=== PATIENT | male | born 1995 | race African-American/Black ===

== ENCOUNTER 2023-03-13 03:36 | Inpatient (IN) | payer SELFPAY ==
[2023-03-13] MEDS ORDERED: Fentanyl CADD 100 ML IV SCH ×2 (04:00→06:15)
[2023-03-13 04:01] LABS: #Eosinphils 0.1 thou/uL (0.0-0.7); #Monocytes 0.4 thou/uL (0.11-0.59); #Neutrophils 4.7 thou/uL (1.40-6.50); %Basophils 0.5 % (0.0-1.0); %Eosinophils 0.8 % (0.0-10.0); %Lymphocytes 34.5 % (21.0-51.0); %Monocytes 4.6 % (0.0-10.0); %Neutrophils 58.8 % (42.0-75.0); Actual Bicarbonate (HCO3a) 21.2 mEq/L (22-28); Analyzer IN Cardio ER; Base Excess (BEa) -2.1 mEq/L (-2.0 to +3.0); CO2 Tension 32.1 mmHg (35.0-45.0); Calcium, Ionized (arterial) 1.13 mmol/L (1.12-1.30); Carboxyhemoglobin (COHb) 3.3 gm% (0.0-3.0); Hematocrit 41.3 % (42.0-52.0); Hematocrit-ABG 40 % (42.0-52.0); Hemoglobin 13.5 g/dL (14.0-18.0); Hemoglobin (Hb) 13.7 g/dL (14.0-18.0); Mean Corpuscular HGB CONC 32.7 g/dL (32.0-36.0); Mean Corpuscular Hemoglobin 27.7 pg (27.0-31.0); Mean Corpuscular Volume 84.8 fl (78.0-98.0); Mean Platelet Volume 9.5 fL (7.4-10.4); O2 Tension (PaO2), arterial 437.2 mmHg (80.0-100.0); Platelet Count 280 10x3/uL (130-400); Potassium - ABG Lab 3.32 mmol/L (3.70-5.30); RBC Distribution Width 13.7 % (11.5-14.5); Red Blood Cell (RBC) Count 4.87 mill/uL (4.70-6.10); pH, Arterial 7.438 (7.35-7.45)
[2023-03-13 04:08] LABS: ALV-art Gradient -120.825 mmHg (0-20); Puncture Site LRA
[2023-03-13 04:27] LABS: Acetaminophen Less than 10 mcg/mL (10.0-30.0); Alcohol 179.2 mg/dL (Less than 10); Lipase 26 U/L (8-78); Salicylate Less than 8.0 mg/dL (15.0-30.0)
[2023-03-13 04:28] LABS: ALT (SGPT) 38 U/L (8-55); AST (SGOT) 31 U/L (5-34); Albumin 5.1 g/dL (3.5-5.0); Alkaline Phosphatase 86 U/L (40-110); Anion Gap 18 mmol/L (10-20); BUN (Urea Nitrogen) 16 mg/dL (8.9-20.6); Bilirubin, Total 0.2 mg/dL (0.2-1.2); CK (CPK) 351 U/L (30-200); Calc. Creatinine Clearance 0 mL/min (70-130); Calcium 9.6 mg/dL (7.8-10.44); Carbon Dioxide 24 mmol/L (22-29); Chloride 105 mmol/L (98-107); Estimated GFR 77; Globulin 2.6 g/dL (2.4-3.5); Glucose 98 mg/dL (70-105); Potassium 3.6 mmol/L (3.5-5.1); Protein, Total 7.7 g/dL (6.0-8.3); Sodium 143 mmol/L (136-145)
[2023-03-13 04:32] LABS: Troponin I Less than 0.010 ng/mL (< 0.028)
[2023-03-13] MEDS ORDERED: Ondansetron PF 4 MG/2 ML Vial ONE ×2 (05:04→05:11)
[2023-03-13] MEDS ORDERED: Propofol 1,000 MG/100 ML VIAL IV ONE (05:05)
[2023-03-13] MEDS ORDERED: Thiamine HCl 200 MG/2 ML VIAL ONE (05:05)
[2023-03-13 05:24] LABS: Bacteria/HPF None Seen HPF (None Seen); Bilirubin Negative (Negative); Blood, Urine Negative (Negative); CAUTI Indications for Culture Urological Procedure; Clarity Clear (Clear); Glucose, Urine (Dipstick) Normal (Negative); Ketone, Urine Negative (Negative); Leukocyte Negative Leu/uL (Negative); Nitrite Negative (Negative); Protein, Urine (Dipstick) Negative (Neg-Trace); RBC/HPF 0-3 HPF (0-3); Specific Gravity, Urine 1.016 (1.002-1.036); Squamous Epithelial None Seen HPF (0-3); Urobilinogen Normal mg/dL (Less than 2); WBC/HPF 0-3 HPF (0-3)
[2023-03-13 05:26] LABS: Amphetamine Not Detected (NotDetected); Barbiturates Screen Not Detected (NotDetected); Benzodiazepine Screen Detected (NotDetected); Cocaine Metabolite Screen Not Detected (NotDetected); Methadone Not Detected (NotDetected); Methamphetamine Not Detected (NotDetected); Opiate Screen Not Detected (NotDetected); Oxycodone Screen Not Detected (NotDetected); Phencyclidine (PCP) Not Detected (NotDetected); THC/Cannabinoid Screen Detected (NotDetected); Tricyclic Screen Not Detected (NotDetected)
[2023-03-13 05:29] LABS: Urine Culture Reflex Yes Yes
[2023-03-13] MEDS ORDERED: Electrolyte Replacement Protocol 1 EACH IVPB SCH (05:56)
[2023-03-13] MEDS ORDERED: Ipratropium/Albuterol 3 ML NEB NEB PRN (05:56)
[2023-03-13] MEDS ORDERED: Acetaminophen 650 MG Suppository PR PRN (05:56)
[2023-03-13] MEDS ORDERED: Ventilator Sedation Protocol 1 EACH FS SCH (06:00)
[2023-03-13] MEDS ORDERED: Fentanyl BOLUS 250 ML IVPB PRN (06:15)
[2023-03-13] MEDS ORDERED: Propofol BOLUS 1,000 MG/100 ML VIAL IV PRN (06:15)
[2023-03-13] MEDS ORDERED: Morphine 2 MG/ML VIAL SLOW IVP PRN (06:15)
[2023-03-13] MEDS ORDERED: DISCONTINUE PREVIOUS NARCOTIC PAIN MEDICATIONS AND BENZODIAZEPINES FS SCH (06:15)
[2023-03-13] MEDS ORDERED: Lorazepam 2 MG/ML VIAL SLOW IVP PRN (06:15)
[2023-03-13] MEDS ORDERED: Propofol 1,000 MG/100 ML VIAL IV PRN (06:15)
[2023-03-13] MEDS: Dextrose 5%-Lactated Ringers 1,000 ML IV SCH ×2 (08:54→17:13)
[2023-03-13] MEDS: Famotidine/PF 20 mg/2ml Vial SLOW IVP SCH ×2 (10:09→20:32)
[2023-03-13 11:52] VITALS: BMI 21.4
[2023-03-13] MEDS ORDERED: FLU VACC QS2023-24(6MOS UP)/PF 60 MCG/0.5 ML SYRINGE IM ONE (12:00)
[2023-03-13] MEDS ORDERED: Iopamidol-370 76% 500 ML MDV (1 ML CHARGE) ONE (14:39)
[2023-03-13 21:05] LABS: Troponin I 0.012 ng/mL (< 0.028)
[2023-03-14 05:45] LABS: #Eosinphils 0.1 thou/uL (0.0-0.7); #Monocytes 0.7 thou/uL (0.11-0.59); #Neutrophils 5.2 thou/uL (1.40-6.50); %Basophils 0.3 % (0.0-1.0); %Eosinophils 1.3 % (0.0-10.0); %Lymphocytes 31.5 % (21.0-51.0); %Monocytes 7.5 % (0.0-10.0); %Neutrophils 59.1 % (42.0-75.0); Hematocrit 40.4 % (42.0-52.0); Hemoglobin 13.3 g/dL (14.0-18.0); Mean Corpuscular HGB CONC 32.9 g/dL (32.0-36.0); Mean Corpuscular Hemoglobin 27.6 pg (27.0-31.0); Mean Corpuscular Volume 83.8 fl (78.0-98.0); Mean Platelet Volume 9.1 fL (7.4-10.4); Platelet Count 250 10x3/uL (130-400); RBC Distribution Width 13.7 % (11.5-14.5); Red Blood Cell (RBC) Count 4.82 mill/uL (4.70-6.10); White Blood Cell (WBC) Count 8.8 10x3/uL (4.8-10.8)
[2023-03-14 06:21] LABS: Anion Gap 14 mmol/L (10-20); BUN (Urea Nitrogen) 10 mg/dL (8.9-20.6); Calc. Creatinine Clearance 111 mL/min (70-130); Calcium 9.1 mg/dL (7.8-10.44); Carbon Dioxide 27 mmol/L (22-29); Chloride 102 mmol/L (98-107); Estimated GFR 110; Glucose 97 mg/dL (70-105); Potassium 3.4 mmol/L (3.5-5.1); Sodium 140 mmol/L (136-145)
[2023-03-14] MEDS: Famotidine/PF 20 mg/2ml Vial SLOW IVP SCH ×2 (08:40→08:42)
[2023-03-14] MEDS: Potassium Chloride 20 MEQ TAB PO SCH ×2 (08:40→08:42)
[2023-03-14 12:02] VITALS: TEMP 98.6
== END 2023-03-14 13:27 | DRG 208 ==
LOC: EDBD 03:36 → ERS 03:36 → SUATTDRO 03:36 → CCU 05:57 → EEVIPCON 05:57
PROVIDERS: ADMIT Internal Medicine; ATTEND Hospitalist
PROC: 5A1935Z Respiratory Ventilation, Less than 24 Consecutive Hours (ICD-10-PCS; principal; 2023-03-13)
PROC: 0BH17EZ Insertion of Endotracheal Airway into Trachea, Via Natural or Artificial Opening (ICD-10-PCS; 2023-03-13)
PROC: 4A033R1 Measurement of Arterial Saturation, Peripheral, Percutaneous Approach (ICD-10-PCS; 2023-03-13)
DX: M94.0 Chondrocostal junction syndrome [Tietze] (principal); J96.00 Acute respiratory failure, unspecified whether with hypoxia or hypercapnia; G93.41 Metabolic encephalopathy; M62.82 Rhabdomyolysis; F17.210 Nicotine dependence, cigarettes, uncomplicated; F12.10 Cannabis abuse, uncomplicated; F10.129 Alcohol abuse with intoxication, unspecified; R45.1 Restlessness and agitation; Y90.6 Blood alcohol level of 120-199 mg/100 ml
CPT/HCPCS: 31500; 36415; 36416; 36600; 51702; 70450; 71045; 71275; 80048; 80053; 80306; 80307; 81001; 82550; 82805; 83690; 84484; 85025; 87086; 93005; 93010; 94002; 96361; 96374; 96375; 99292; J2405; J2704; J3010; J3411; Q9967; S0028